=== PATIENT | female | born 1995 | race Caucasian/White ===

== ENCOUNTER 2018-11-17 12:41 | Emergency (ER) | payer OTHER ==
[~2018-11-17] VITALS: Ht 167.6 cm; Wt 113.4 kg
[~2018-11-17 12:41] MED LIST: CIPROFLOXACIN500 M1 PO; LISINOPRIL5 MG PO; NUVARING VAGIN1 EACH VG
[2018-11-17] MEDS ORDERED: SPIRONOLACTONE25 M1 PO (12:50)
[2018-11-17] MEDS ORDERED: HYDROXYZINE HCL25 M1 PO (12:50)
[2018-11-17] MEDS ORDERED: CAMILA0.35 MG PO (12:51)
[2018-11-17] MEDS ORDERED: SERTRALINE HCL50 MG PO (12:51)
[2018-11-17] MEDS ORDERED: VITAMIN D1000 UNI1 PO (12:52)
[2018-11-17 15:10] LABS: URINE BILIRUBIN NEGATIVE (Negative); URINE BLOOD 2+ (Negative); URINE CLARITY CLEAR; URINE COLOR YELLOW; URINE GLUCOSE-RANDOM NEGATIVE (Negative); URINE KETONES NEGATIVE (Negative); URINE LEUKOCYTES-REFLEX NEGATIVE (Negative); URINE NITRITE-REFLEX NEGATIVE (Negative); URINE PROTEIN NEGATIVE (Negative); URINE SPECIFIC GRAVITY >= 1.030 (1.005-1.030); URINE UROBILINOGEN 0.2 E.U./dl (0.2-1.0)
[2018-11-17 15:28] LABS: ABSOLUTE BASOPHILS 0.1 thou/uL (0.0-0.2); ABSOLUTE EOSINOPHILS 0.2 thou/uL (0.0-0.7); ABSOLUTE LYMPHOCYTES 3.1 thou/uL (0.8-5.3); ABSOLUTE MONOCYTES 0.8 thou/uL (0.0-1.2); ABSOLUTE NEUTROPHILS 7.1 thou/uL (1.6-8.1); BASOPHILS 0.7 %; EOSINOPHILS 1.4 %; HEMATOCRIT 42.8 % (37.0-47.0); HEMOGLOBIN 14.1 gm/dL (12.0-15.0); LYMPHOCYTES 27.6 %; MCH 27.7 pg (26.0-34.0); MCV 84.1 fL (80.0-100.0); MONOCYTES 6.8 %; MPV 8.3 fl. (7.2-11.1); NUCLEATED RBCS 0 /100WBC; PLATELET COUNT* 322 thou/uL (150-400); POLYS 63.5 %; RBC 5.09 mil/uL (4.20-5.00); RDW-CV 14.2 % (10.5-14.5); WBC 11.2 thou/uL (4.0-11.0)
[2018-11-17 15:35] LABS: CALCIUM 9.1 mg/dL (8.5-10.1); CREATININE 0.9 mg/dL (0.6-1.3); POTASSIUM 4.2 mmol/L (3.5-5.1)
[2018-11-17 15:40] LABS: ALBUMIN 3.7 g/dL (3.4-5.0); TOTAL BILIRUBIN 0.3 mg/dL (<0.1-1.0); TOTAL PROTEIN 7.6 g/dL (6.4-8.2)
[2018-11-17 15:49] LABS: CASTS None Seen /LPF (None Seen); MUCUS 0-3 Light strn/LPF (None Seen); SQUAMOUS >10 Many /LPF (0-3)
[2018-11-17 15:50] LABS: BACTERIA-REFLEX 1-9 Few /HPF (None Seen); CRYSTALS None Seen /LPF (None Seen); URINE RBC 3-10 Few /HPF (0-2); URINE WBC-REFLEX 0-5 Rare /HPF (0-5)
[2018-11-17 16:02] VITALS: BP 154/100
== END 2018-11-17 16:03 | disposition home or self-care (01) ==
LOC: M.ERS 12:41
PROVIDERS: Nurse Practitioner Family
DX: N93.9 Abnormal uterine and vaginal bleeding, unspecified (principal); I10 Essential (primary) hypertension; Z88.1 Allergy status to other antibiotic agents